=== PATIENT | male | born 1975 | race Caucasian/White ===

== ENCOUNTER 2018-05-26 12:04 | Emergency (ER) | payer OTHER ==
[~2018-05-26] VITALS: Ht 188 cm; Wt 71.3 kg
[2018-05-26 12:09] VITALS: BP 103/52
--- NOTE | 2018-05-26 12:56 | NUR ---
Pt to rm 21 from lobby
--- NOTE | 2018-05-26 13:03 | NUR ---
Assumed care of patient. C/O left sided CP x 1 week. Hx pericarditis x2. Patient states, "this feel exactly liek the last itme I had pericarditis." SO at bedside. Placed on NIBP, pulse ox and satellite project site monitor. Will continue to monitor.
[2018-05-26 13:57] LABS: BASOPHILS # (AUTO) 0.03 x10^3/uL (0-0.1); BASOPHILS % (AUTO) 1 % (0-1); EOSINOPHILS # (AUTO) 0.07 x10^3/uL (0-0.4); EOSINOPHILS % (AUTO) 2 % (1-7); LYMPHOCYTES # (AUTO) 1.88 x10^3/uL (1-3.4); LYMPHOCYTES % (AUTO) 42 % (22-44); MD NO; MEAN CORPUSCULAR HEMOGLOBIN 29.6 pg (27.5-34.5); MEAN CORPUSCULAR HGB CONC 33.1 g/dL (33.2-36.2); MEAN CORPUSCULAR VOLUME 89.4 fL (81-97); MEAN PLATELET VOLUME 8.7 fL (7.4-10.4); MONOCYTES # (AUTO) 0.46 x10^3/uL (0.2-0.8); MONOCYTES % (AUTO) 10 % (2-9); NEUTROPHILS # (AUTO) 2.08 x10^3/uL (1.8-6.8); NEUTROPHILS % (AUTO) 46 % (42-75); PLATELET COUNT 195 x10^3/uL (130-400); RED BLOOD COUNT 4.67 x10^6/uL (4.38-5.82); RED CELL DISTRIBUTION WIDTH 13.2 % (9.4-14.8)
[2018-05-26 13:59] LABS: HCT (SEDRATE) 41.7 % (39.2-51.8)
[2018-05-26 14:05] LABS: ALBUMIN 3.8 g/dL (3.4-5.0); ANION GAP 7 mmol/L (5-15); CALCIUM 8.9 mg/dL (8.5-10.1); CHLORIDE 107 mmol/L (98-107); CREATININE 0.85 mg/dL (0.7-1.3)
[2018-05-26 14:06] LABS: C-REACTIVE PROTEIN, QUANT < 0.02 mg/dL (0.02-0.49)
--- NOTE | 2018-05-26 14:06 | NUR ---
PT RESTING IN BED. AWAITING ECHO RESULTS. REPORT PAIN RELIEF.
[2018-05-26 14:10] LABS: TROPONIN I < 0.015 ng/mL (0.000-0.045)
[2018-05-26] MEDS ORDERED: KETOROLAC 30 MG/1 ML ONE (14:19)
--- NOTE | 2018-05-26 14:23 | NUR ---
BRISA RN: PT GIVEN 60MG IM TORADOL.
[2018-05-26] MEDS ORDERED: KETOROLAC 60 MG/2 ML IM ONE (14:30)
--- NOTE | 2018-05-26 15:13 | NUR ---
Patient/Caregiver given discharge instructions and they have confirmed that they understand the instructions. Patient ambulatory with steady gait.
== END 2018-05-26 15:13 | disposition home or self-care (01) ==
LOC: ED 15:07
DX: I30.0 Acute nonspecific idiopathic pericarditis (principal)
CPT/HCPCS: 36415; 71045; 80048; 82040; 84484; 85025; 85651; 86140; 93005; 93306; 96372; 99284; J1885

== ENCOUNTER → 2018-06-17 | Outpatient (CLI) | payer OTHER | END | disposition home or self-care (01) | LOC: CVU 08:38 | PROVIDERS: ATTEND Internal Medicine Cardiovascular Disease | DX: I31.9 Disease of pericardium, unspecified (principal) | CPT/HCPCS: 0399T; 93306 ==

== ENCOUNTER → 2018-07-23 | Outpatient (CLI) | payer OTHER | END | disposition home or self-care (01) | LOC: RAD 07:33 | PROVIDERS: ATTEND Family Medicine | DX: R11.0 Nausea (principal); I31.9 Disease of pericardium, unspecified | CPT/HCPCS: 74241 ==

== ENCOUNTER 2019-07-01 11:29 | Emergency (ER) | payer OTHER ==
[~2019-07-01] VITALS: Ht 188 cm; Wt 68.2 kg
[2019-07-01] MEDS ORDERED: ONDANSETRON 2MG/ML, 2ML ONE (12:08)
--- NOTE | 2019-07-01 12:24 | NUR ---
LATE NOTE ENTRY DUE TO PT CARE: Pt presents to ED by EMS from [facility] after having a syncopal episode, bradycardia in the 30's, seized, and remained hypotensive and nauseated when receiving CCK and Tech 9 during imaging exam. Pt is resting on gurney connected to NIBP cuff, continous pulse ox monitor, and clinical genetics laboratory chief. Pt has two PIV's in place prior to arrival. Pt received 4 mg of Chris and 1,000 mL of NS prior to arrival to ED. Pt has seizure precautions in place. Bedrails up x 2 and spouse at bedside. Call light within reach. PIV fluids infusing per EMAR and medicaitons provided per EMAR. Lab obtained blood at bedside. EKG done at bedside. Pending lab results at this time. Pt remains nauseated after second dose of Zofran 4 mg PIV per EMAR. ED MD aware.
[2019-07-01] MEDS ORDERED: POLY17PO5 PO (12:29)
[2019-07-01] MEDS ORDERED: OMEP-110 PO (12:29)
[2019-07-01] MEDS ORDERED: ONDANSETRON 2MG/ML, 2ML IVPush ONE (12:30)
[2019-07-01] MEDS ORDERED: SODIUM CHLORIDE 0.9% 1,000ML IVBOLUS ONE ×2 (12:30→13:00)
[2019-07-01 12:36] LABS: BASOPHILS # (AUTO) 0.03 x10^3/uL (0-0.1); BASOPHILS % (AUTO) 1 % (0-1); EOSINOPHILS # (AUTO) 0.06 x10^3/uL (0-0.4); EOSINOPHILS % (AUTO) 1 % (1-7); LYMPHOCYTES # (AUTO) 1.24 x10^3/uL (1-3.4); LYMPHOCYTES % (AUTO) 26 % (22-44); MD NO; MEAN CORPUSCULAR HEMOGLOBIN 29.7 pg (27.5-34.5); MEAN CORPUSCULAR HGB CONC 33.3 g/dL (33.2-36.2); MEAN CORPUSCULAR VOLUME 89.2 fL (81-97); MEAN PLATELET VOLUME 8.2 fL (7.4-10.4); MONOCYTES # (AUTO) 0.38 x10^3/uL (0.2-0.8); MONOCYTES % (AUTO) 8 % (2-9); NEUTROPHILS % (AUTO) 64 % (42-75); PLATELET COUNT 168 x10^3/uL (130-400); RED BLOOD COUNT 4.49 x10^6/uL (4.38-5.82); RED CELL DISTRIBUTION WIDTH 13.4 % (9.4-14.8)
[2019-07-01] MEDS ORDERED: PROMETHAZINE 25 MG/ML, 1ML ONE (12:37)
[2019-07-01 12:47] LABS: ALBUMIN 3.6 g/dL (3.4-5.0); ANION GAP 5 mmol/L (5-15); CALCIUM 8.3 mg/dL (8.5-10.1); CHLORIDE 114 mmol/L (98-107)
[2019-07-01 12:52] LABS: ALANINE AMINOTRANSFERASE 18 U/L (12-78); ALKALINE PHOSPHATASE 56 U/L (45-117); BILIRUBIN,TOTAL 0.5 mg/dL (0.2-1.0); CREATININE 0.89 mg/dL (0.7-1.3); TOTAL PROTEIN 6.4 g/dL (6.4-8.2); TROPONIN I < 0.015 ng/mL (0.000-0.045)
--- NOTE | 2019-07-01 12:52 | NUR ---
Pt declining medication for nausea per EMAR at this time. PIV fluids finished infusing per EMAR. Provided pt pillow per request. Pt has warm blankets and blanket warmer provided per request. NADN. No other needs expressed. Labs pending at this time. Spouse at bedside. Seizure precautions remain in place. Call light within reach.
[2019-07-01] MEDS ORDERED: PROMETHAZINE 25 MG/ML, 1ML IM ONE (13:00)
--- NOTE | 2019-07-01 13:01 | NUR ---
RECEIVED REPORT FROM DESIRE CROFT LAYING ON GURNEY WITH EYES CLOSED, RESPONDS APPROP TO STAFF, NAD, AT BS, COMFORT MEASURES PROVIDED, CALL LIGHT WITHIN REACH.
[2019-07-01] MEDS ORDERED: DIPHENHYDRAMINE 50 MG/ML, 1ML IVPush ONE (13:30)
[2019-07-01] MEDS ORDERED: METOCLOPRAMIDE 5 MG/ML, 2ML IVPush ONE (13:30)
[2019-07-01 13:48] VITALS: BP 106/48
--- NOTE | 2019-07-01 13:48 | NUR ---
PT CONTINUES LAYING ON GURNEY WITH EYES CLOSED, REPORTS FEELING BETTER WITH LESS NAUSEA, RESPONDS APPROP TO STAFF, NAD, AT BS, COMFORT MEASURES PROVIDED, CALL LIGHT WITHIN REACH.
--- NOTE | 2019-07-01 14:24 | NUR ---
PO FLUIDS & CRACKERS GIVEN, PT TOLERATED WELL WITHOUT NV- DR DOMINGUEZ AWARE.
--- NOTE | 2019-07-01 15:04 | NUR ---
Patient and spouse given discharge instructions and they have confirmed that they understand the instructions. Patient ambulatory with steady gait. Pt left with all d/c paperwork and personal belongings. NADN. No needs expressed.
== END 2019-07-01 15:06 | disposition home or self-care (01) ==
LOC: ED 15:00
DX: R55 Syncope and collapse (principal); R10.13 Epigastric pain; R10.11 Right upper quadrant pain; R11.0 Nausea; R42 Dizziness and giddiness; H53.2 Diplopia
CPT/HCPCS: 80053; 82962; 83690; 84484; 85025; 93005; 96361; 96374; 99284; J2405; J7030

== ENCOUNTER → 2019-12-17 | Outpatient (CLI) | payer OTHER ==
[~2019-12-17] MED LIST: MULT-124 PO; OMEP-110 PO; POLY17PO5 PO; PSYL0.5215 PO
== END | disposition home or self-care (01) ==
LOC: STAR 11:35
PROVIDERS: ATTEND Surgery
DX: Z01.818 Encounter for other preprocedural examination (principal); Z11.59 Encounter for screening for other viral diseases; R94.31 Abnormal electrocardiogram [ECG] [EKG]
CPT/HCPCS: 36415; 87635; 93005

== ENCOUNTER 2019-12-21 08:00 | Day surgery (SDC) | payer OTHER ==
[~2019-12-21] VITALS: Ht 188 cm; Wt 66.5 kg
[2019-12-21] MEDS ORDERED: LACTATED RINGERS 1,000 ML IV SCH (08:27)
[2019-12-21] MEDS ORDERED: LIDOCAINE-MPF 1%, 2ML INFIL ONE (08:30)
[2019-12-21] MEDS ORDERED: CHLORHEXIDINE 15 ML UDC MM ONE (08:30)
[2019-12-21 08:34] VITALS: BP 116/72
[2019-12-21] MEDS ORDERED: SCOPOLAMINE 1MG PATCH TD ONE ×2 (09:15→09:30)
[2019-12-21] MEDS ORDERED: ACETAMINOPHEN 500 MG TABLET ONE ×2 (09:50)
[2019-12-21] MEDS ORDERED: BUPIVACAINE/PF-EPI 0.5% 1:200K ONE (10:03)
[2019-12-21] MEDS ORDERED: ROCURONIUM 10 MG/ML,10ML ONE (10:09)
[2019-12-21] MEDS ORDERED: SUGAMMADEX 200 MG/2 ML IVPush ONE (10:09)
[2019-12-21] MEDS ORDERED: PROPOFOL 10 MG/ML, 50ML ONE (10:09)
[2019-12-21] MEDS ORDERED: ESMOLOL 100 MG/10 ML ONE (10:09)
[2019-12-21] MEDS ORDERED: DEXAMETHASONE 4 MG/ML, 1ML ONE (10:09)
[2019-12-21] MEDS ORDERED: ONDANSETRON 2MG/ML, 2ML ONE (10:09)
[2019-12-21] MEDS ORDERED: PROPOFOL 10 MG/ML, 20ML ONE (10:09)
[2019-12-21] MEDS ORDERED: KETOROLAC 30 MG/1 ML ONE (10:09)
[2019-12-21] MEDS ORDERED: hydrALAzine 20 MG/ML, 1ML IV PRN (10:30)
[2019-12-21] MEDS ORDERED: DIAZEPAM 5 MG/ML, 2ML IVPush PRN (10:30)
[2019-12-21] MEDS ORDERED: ALBUTEROL SULFATE 2.5 MG/3 ML NPPB PRN (10:30)
[2019-12-21] MEDS ORDERED: HYDROmorphone 2 MG/ML, 1ML IVPush PRN (10:30)
[2019-12-21] MEDS ORDERED: OXYcodone 5 MG/5 ML ORAL.SOL UDC PO PRN (10:30)
[2019-12-21] MEDS ORDERED: LABETALOL 5MG/ML, 20ML IV PRN (10:30)
[2019-12-21] MEDS ORDERED: FENTANYL PF 100 MCG/2ML IV PRN (10:30)
[2019-12-21] MEDS ORDERED: PROMETHAZINE 25 MG/ML, 1ML IV PRN (10:30)
[2019-12-21] MEDS ORDERED: MEPERIDINE/PF 25MG/0.5ML IVPush PRN (10:30)
[2019-12-21] MEDS ORDERED: BUPIVACAINE/PF-EPI 0.5% 1:200K INFIL ONE (10:31)
[2019-12-21] MEDS ORDERED: PROMETHAZINE 25 MG/ML, 1ML ONE (11:32)
[2019-12-21] MEDS ORDERED: MEPERIDINE/PF 25MG/ML,1ML ONE (12:02)
== END 2019-12-21 13:45 | disposition home or self-care (01) ==
LOC: OUT 08:00
PROVIDERS: ATTEND Surgery
DX: K80.50 Calculus of bile duct without cholangitis or cholecystitis without obstruction (principal); K82.8 Other specified diseases of gallbladder; Z98.890 Other specified postprocedural states; Z80.9 Family history of malignant neoplasm, unspecified
CPT/HCPCS: 47562; 88304; C1760; J1100; J1885; J2175; J2405; J2550; J2704; J7120